=== PATIENT | male | born 1935 | race Caucasian/White ===

== ENCOUNTER 2017-09-29 07:13 | Day surgery (SDC) | payer OTHER, BC ==
[~2017-09-29] VITALS: Ht 175.3 cm; Wt 72.5 kg
[~2017-09-29 07:13] MED LIST: ALPHAGAN P100 DROP/5 BOTH EYES; ALPRAZOLAM0.5 MG PO; ANTARA130 MG PO; ASPIRIN E.C.81 M1 PO; ASPIRIN81 M2 PO; Bumex PO; CARVEDILOL3.125 MG PO; COLCHICINE,COL0.6 MG PO; COLCRYS0.6 MG PO; COUMADIN3 MG; COUMADIN3 MG PO; COUMADIN4 MG PO; Coumadin Protocol PO; FENOFIBRATE160 M1 PO; FUROSEMIDE20 MG PO; K-DUR20 MEQ PO; LEVAQUIN750 MG PO; LEVOTHYROXINE50 MCG PO; LIDODERM 5% P1 PATCH TD; MULTAQ400 MG PO; NITROSTAT0.4 MG SL; PREDNISONE20 MG PO; PRINIVIL5 MG PO; PROSCAR5 MG PO; PROTONIX40 MG PO; Proscar PO; TRAMADOL HCL50 MG PO; TRAMADOL-ACETA1 EACH PO; TRILIPIX135 MG PO; Tylenol Regular Stre PO; ULTRACET1 TABLET PO; VENTOLIN HFA18 GM IH; ZETIA10 MG PO; Zestril,Prinivil PO; [UNRECOGNIZED DRUG - OTHER]
[2017-09-29 08:00] LABS: INTER. NORMALIZED RATIO 1.2
[2017-09-29] MEDS ORDERED: METOPROLOL SUCC25 MG PO (08:50)
[2017-09-29 08:53] VITALS: BP 155/74
[2017-09-29 12:33] VITALS: BP 155/90
[2017-09-29 19:25] VITALS: BP 118/59
[2017-09-30 00:15] VITALS: BP 129/80
[2017-09-30 03:45] VITALS: BP 120/58
[2017-09-30 07:45] VITALS: BP 133/63
== END 2017-09-30 10:39 | disposition home or self-care (01) ==
LOC: SDC 07:13 → 2EASTP 10:23 → 2SOUTH 10:23 → ENRESERV 10:32 → SDC 11:57 → 2EASTP 12:44
PROVIDERS: Surgery
PROC: 0YU50JZ Supplement Right Inguinal Region with Synthetic Substitute, Open Approach (ICD-10-PCS; principal; 2017-09-29)
DX: K40.90 Unilateral inguinal hernia, without obstruction or gangrene, not specified as recurrent (principal); I48.91 Unspecified atrial fibrillation; Z88.5 Allergy status to narcotic agent; Z88.6 Allergy status to analgesic agent
CPT/HCPCS: 85610; 85730; 88302; 88304; 93005; 94799; C1781; G0378; J0131; J0690; J1100; J1170; J2250; J2405; J3010; J7120